=== PATIENT | female | born 1995 | race Caucasian/White ===

== ENCOUNTER 2020-11-14 20:20 | Emergency (ER) | payer OTHER ==
[2020-11-14 21:39] LABS: BUN/CREATININE RATIO 12 (0-10)
[2020-11-14 21:49] LABS: HEMOGLOBIN 12.7 gm/dl (12.3-15.3); RED BLOOD COUNT 4.45 M/UL (4.00-5.10); WHITE BLOOD COUNT 5.1 K/UL (4.5-11.0)
== END 2020-11-14 23:33 | disposition home or self-care (01) ==
LOC: ER1 20:20
PROVIDERS: Physician Assistant
DX: R55 Syncope and collapse (principal); F19.10 Other psychoactive substance abuse, uncomplicated; G40.909 Epilepsy, unspecified, not intractable, without status epilepticus
CPT/HCPCS: 70450; 80053; 80307; 81001; 84703; 85025; 93005; 99284

== ENCOUNTER 2020-11-17 14:03 | Emergency (ER) | payer OTHER | END 2020-11-17 16:15 | disposition left against medical advice (07) | LOC: ER1 14:03 | DX: Z53.21 Procedure and treatment not carried out due to patient leaving prior to being seen by health care provider (principal) ==

== ENCOUNTER 2021-01-24 18:10 | Emergency (ER) | payer OTHER | END 2021-01-24 18:44 | disposition left against medical advice (07) | LOC: ER1 18:10 | DX: Z53.21 Procedure and treatment not carried out due to patient leaving prior to being seen by health care provider (principal) ==